=== PATIENT | female | born 1980 | race Caucasian/White ===

== ENCOUNTER 2024-04-06 02:50 | Emergency (ER) | payer MEDICAID, SELFPAY ==
[2024-04-06 02:59] VITALS: BP 112/81; PULSE 130; O2SAT 98
[2024-04-06 03:32] VITALS: BP 121/70; PULSE 107; RESP 24; TEMP 36.5; O2SAT 97; BMI 36.1
[2024-04-06 06:24] VITALS: BP 108/62; PULSE 90; RESP 20; TEMP 36.5; O2SAT 98
--- NOTE | 2024-04-06 06:42 | ED.GENADULT ---
HPI - General Adult General Chief complaint: Wound/Laceration Stated complaint: LAC TO LFT THUMB/ ANXIETY ATTACK/POSSIBLE DRUG USE Time Seen by Provider: 04/06/24 06:27 Source: patient Mode of arrival: ambulatory Limitations: no limitations History of Present Illness ED Provider: Nestor [facility] narrative: patient is a 43-year-old female presenting to the emergency department via EMS for laceration to left thumb occurring around 1:00 p.m. on 04/05. Patient states that she accidentally caught her thumb with a kitchen knife at home. States her Tdap is up-to-date within the last 5 years. Denies any numbness or tingling. Denies any decreased range of motion to thumb. She is right-hand dominant. MD complaint: Thumb laceration Onset (ago): hour(s) Treatments prior to arrival: other ( bandage) Related Data Allergies Allergy/AdvReac Type Severity Reaction Status Date / Time No Known Allergies Allergy Verified 04/06/24 03:36 Review of Systems Review of Systems: as per HPI. Yes all other systems are reviewed and are negative Constitutional: Constitutional: Reports as per HPI [facility] Social History Social History Smoked in Last 30 Days: Yes Use of substances other than those prescribed or required for medical reasons: No Advance Directives: No Advance Directives Information Provided: Yes Do you have a plan to hurt others: No Plan Physical Exam ED Vital Signs: Vital Signs - 24 hr 04/06/24 03:32 04/06/24 06:24 04/06/24 06:54 Temperature 97.7 F 97.7 F 97.7 F Pulse Rate 107 H 90 90 Respiratory Rate 24 H 20 20 Blood Pressure 121/70 108/62 108/62 Pulse Oximetry 97 98 Oxygen Delivery Method Room Air Room Air Room Air BMI result Body Mass Index 36.1 Vital signs have been reviewed and appear to be correct. Blood pressure normal. Heart rate normal. Respiratory rate normal. Temperature normal. Oxygen saturation normal. Const General: cooperative, no acute distress and anxious Orientation/consciousness: oriented to person, oriented to place, oriented to time and patient oriented x3 Limitations: no limitations HENMT Head: Yes normocephalic and Yes atraumatic Ears: external ears normal General nose exam: Normal external nose present Face and sinus: Yes face symmetric Mouth: oropharynx normal and moist mucous membranes Throat: Yes uvula midline Eyes Pupils: Equal, round and reactive pupils present Neck Neck: Yes normal visual inspection and Yes supple Resp Effort & Inspection: normal respiratory effort and able to speak in complete sentences Auscultation: clear to auscultation bilaterally Cardio Rate: regular rate Rhythm: regular rhythm Heart sounds: S1 normal heart sound present and S2 normal heart sound present GI Palpation (GI): Soft to palpation and nontender Auscultation: normoactive bowel sounds General: Yes no CVA tenderness Back/Spine/Pelvis Back: no CVA tenderness Skin General skin exam: elasticity normal and turgor normal Neuro General: oriented to person, oriented to place, oriented to time, patient oriented x3, moves all extremities, no focal motor deficits and CN's II-XI intact bilaterally Cranial nerves: Yes Equal, round and reactive pupils present Cognition (Neuro): normal cognition Extrem General: Yes full ROM, Yes no pedal edema and Yes no calf tenderness Left upper extremity: hand Details: normal capillary refill, neuromotor exam normal, neurosensory exam normal, tendon exam normal, normal ROM of fingers and laceration thumb ulnar aspect distal Details: linear and superficial Psych Mental Status: mental status grossly normal Affect: normal affect Thought process: Normal thought process present Medical Decision Making Medical Decision Making [facility] Narrative: patient is a 43-year-old female presenting to the emergency department via EMS for laceration to left thumb occurring around 1:00 p.m. on 04/05. On exam patient is awake, A+Ox3, VS WNL, afebrile, normal neurological exam without focal deficits, physical exam findings as above. Given reported symptoms and physical exam findings, initial differential includes laceration, cellulitis. No evidence of infection. Wound is superficial. Tdap up-to-date. Wound cleansed thoroughly with saline and Betadine. Laceration repaired with Exofin skin glue and Steri-Strips. Discussed with patient that the glue will fall off on its own and advised patient to avoid picking or peeling at the glue, submerging hand in water. Advised patient to assess area daily for signs of infection and return if this occurs. Return precautions discussed at length at bedside. Patient verbalized understanding of and agreement with plan. Differential Diagnosis Differential Diagnoses: The differential diagnosis associated with the presentation includes As per [facility] External Record Review External record reviewed: Inpatient record Discharge Plan Discharge Clinical Impression: Laceration of left thumb Patient Disposition: Home, Self-Care Instructions: Finger Laceration (ED), Skin Adhesive Care (ED) Additional Instructions: You have been evaluated in the emergency department today for a laceration to your thumb. Your laceration was repaired in the emergency department with glue which will fall off on it's own in a few days. Do not pick or peel at the glue. Please keep the area surrounding the laceration clean and dry and keep dressing in place for the next 24 hours. After that please change the dressing and assess the wound daily. Do not submerge the wound in water until the wound has fully healed (no washing dishes, swimming, hot tubs, etc. and ESPECIALLY no outdoor water). Keep the area out of direct sunlight for the next 6 months to help prevent scarring. If you develop fever, redness, swelling at the site of your laceration, or thick yellow drainage please come back to the ER for a wound check. Interventions: ED Discharge Assessment Last Done: 04/06/24 06:54 Discharge Date/Time: 04/06/24 06:56 Print Language: Faroese
[2024-04-06 06:54] VITALS: BP 108/62; PULSE 90; RESP 20; TEMP 36.5
== END 2024-04-06 06:56 | disposition home or self-care (01) ==
PROVIDERS: Emergency Provider Emergency Medicine Emergency Medical Services; PCP Family Medicine
DX: S61.012A Laceration without foreign body of left thumb without damage to nail, initial encounter (principal); W26.0XXA Contact with knife, initial encounter; Y93.9 Activity, unspecified; Y92.019 Unspecified place in single-family (private) house as the place of occurrence of the external cause; Y99.9 Unspecified external cause status
CPT/HCPCS: 12001; 99284